=== PATIENT | female | born 1950 | race Caucasian/White ===

== ENCOUNTER → 2020-05-23 | Outpatient (CLI) | payer OTHER ==
[2020-05-23 13:02] LABS: BASOPHILS % (AUTO) 1 % (0-10); EOSINOPHILS % (AUTO) 5 % (0-10); HEMATOCRIT 38 % (35-52); HEMOGLOBIN 12.5 G/DL (11.5-16.0); LYMPHOCYTES # (AUTO) 1.4 X 10^3 (1.0-4.0); LYMPHOCYTES % (AUTO) 25 % (12-44); MEAN CORPUSCULAR HEMOGLOBIN 32 PG (25-34); MEAN CORPUSCULAR HGB CONC 33 G/DL (32-36); MEAN CORPUSCULAR VOLUME 95 FL (80-99); MEAN PLATELET VOLUME 9.4 FL (7.4-10.4); MONOCYTES % (AUTO) 6 % (0-12); NEUTROPHILS # (AUTO) 3.4 X 10^3 (1.8-7.8); NEUTROPHILS % (AUTO) 62 % (42-75); PLATELET COUNT 316 10^3/uL (130-400); WHITE BLOOD COUNT 5.5 10^3/uL (4.3-11.0)
[2020-05-23 13:03] LABS: BASOPHILS # (AUTO) 0.1 10^3/uL (0.0-0.1); EOSINOPHILS # (AUTO) 0.3 10^3/uL (0.0-0.3); MONOCYTES # (AUTO) 0.4 X 10^3 (0.0-1.0)
[2020-05-23 13:45] LABS: CREATININE SERUM 0.88 MG/DL (0.60-1.30)
== END ==
LOC: LAB FS 12:26
DX: M25.50 Pain in unspecified joint (principal); R76.0 Raised antibody titer
CPT/HCPCS: 36415; 82565; 84460; 85025; 86200; 86431

== ENCOUNTER → 2020-07-28 | Outpatient (CLI) | payer MEDICARE, OTHER ==
--- NOTE | 2020-07-28 18:07 | Diagnostic Imaging Report ---
EXAMINATION: Right hand radiographs, 3 views. COMPARISON: None. HISTORY: 69-year-old female, right hand pain. FINDINGS: There is mild narrowing of the distal radial ulnar joint. 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 There is no widening of the scapholunate or lunotriquetral intervals. There is moderate osteoarthritis of the first carpometacarpal joint. There is mild first interphalangeal arthritis and mild osteoarthritis of the second and third metacarpophalangeal joints. There is very mild osteoarthritis of distal interphalangeal joints. There is a deformity of the base of the fifth metacarpal without a definite fracture line although potentially present on the oblique view. There is a question of overlying soft tissue swelling. IMPRESSION: 1. Probable fracture of the base of the fifth metacarpal of uncertain exact age. This is potentially acute. Recommend correlation for focal pain at this exact site. There is no gross offset of the articulating surface. 2. Proximal migration of the lunate without widening of the scapholunate or lunotriquetral intervals. 3. Arthritic findings as above. Dictated by: Dictated on workstation # [id number]
== END ==
LOC: RAD FS 16:50
PROVIDERS: ATTEND Nurse Practitioner Family
DX: M18.11 Unilateral primary osteoarthritis of first carpometacarpal joint, right hand (principal); S63.094A Other dislocation of right wrist and hand, initial encounter; X58.XXXA Exposure to other specified factors, initial encounter
CPT/HCPCS: 73130

== ENCOUNTER → 2020-07-29 | Outpatient (CLI) | payer MEDICARE, OTHER ==
--- NOTE | 2020-07-29 11:42 | Diagnostic Imaging Report ---
INDICATION: RIB PAIN ON RIGHT SIDE. 1 WEEK POST FALL. TECHNIQUE: 3 radiographic right ribs, 10:44 AM. CORRELATION STUDY: None FINDINGS: Subtle, relatively nondisplaced anterior rib 6th and 7th rib fracture deformities. Remaining ribs otherwise unremarkable. Right lung field clear without infiltrate, effusion and/or pneumothorax. Findings likely reflect previous fracture deformity with associated degenerative change about the right shoulder. Marked distortion and narrowing of the shoulder joint. IMPRESSION: 1. Findings do suggest a relatively nondisplaced right anterior rib 6 and 7 fracture deformities. Dictated by: Dictated on workstation # [id number]
== END ==
LOC: RAD FS 10:16
PROVIDERS: ATTEND Nurse Practitioner Family
DX: R07.81 Pleurodynia (principal)
CPT/HCPCS: 71100

== ENCOUNTER → 2020-09-09 | Outpatient (CLI) | payer MEDICARE, OTHER ==
--- NOTE | 2020-09-09 16:51 | Diagnostic Imaging Report ---
EXAMINATION: Right hand 3 views. HISTORY: Fracture COMPARISON: 07/28/2020 FINDINGS: Alignment of the base of right fifth metacarpal is unchanged with a healing mildly displaced intra-articular fracture. There is moderate advanced osteoarthritis particularly involving the first carpometacarpal joint. There is mild interphalangeal osteoarthritis throughout the hand. No new fracture is seen. IMPRESSION: 1. Unchanged alignment of a healing mildly displaced intra-articular fracture at the base of the right fifth metacarpal. Dictated by: Dictated on workstation # [id number]
== END ==
LOC: RAD FS 15:02
PROVIDERS: ATTEND Nurse Practitioner
DX: S62.316D Displaced fracture of base of fifth metacarpal bone, right hand, subsequent encounter for fracture with routine healing (principal); X58.XXXD Exposure to other specified factors, subsequent encounter
CPT/HCPCS: 73130

== ENCOUNTER → 2020-10-21 | Outpatient (CLI) | payer MEDICARE, OTHER ==
--- NOTE | 2020-10-21 11:07 | Diagnostic Imaging Report ---
EXAMINATION: Right hand at 9:03 AM. INDICATION: Fracture. TECHNIQUE: Three views were obtained. FINDINGS: The prior exam of 09/09/2020 noted a healing mildly displaced intra-articular fracture of the base of the 5th metacarpal. On this study, there does appear to be greater healing callus formation about the fracture site. The fracture line is barely visible and I suspect that the fracture has nearly completely (if not completely) healed. No other fracture or acute bony abnormality is appreciated. The soft tissues are unremarkable. IMPRESSION: 1. There has been further healing of the fracture of the base of the 5th metacarpal and the fracture line is now barely visible. Most likely, the fracture is either completely or nearly completely healed. 2. There is no acute bony abnormality noted. Dictated by: Dictated on workstation # [id number]
== END ==
LOC: RAD FS 08:43
PROVIDERS: ATTEND Nurse Practitioner
DX: S62.317D Displaced fracture of base of fifth metacarpal bone, left hand, subsequent encounter for fracture with routine healing (principal); X58.XXXD Exposure to other specified factors, subsequent encounter
CPT/HCPCS: 73130